=== PATIENT | female | born 1945 | race African-American/Black ===

== ENCOUNTER 2022-10-10 13:23 | Emergency (ER) | payer OTHER ==
[2022-10-10 14:38] LABS: SARS-COV-2 RT PCR NEGATIVE (NEGATIVE)
[2022-10-10 15:35] LABS: Absolute Lymphocytes (CBC) 1.4 K/uL (0.7-4.9); Hematocrit 38.7 % (36.0-45.0); Lymphocytes % 47.9 % (15.3-44.8); MCV 95.7 fL (80-100); MPV 8.3 fL (7.6-11.3); RBC Red Blood Cell Count 4.04 M/uL (3.86-4.86)
[2022-10-10 15:38] LABS: Protime INR 1.11
--- NOTE | 2022-10-10 15:43 | RAD REPORT ---
EXAM DESCRIPTION: RAD - Chest Single View - 10/10/2022 3:37 pm CLINICAL HISTORY: COUGH Chest pain. COMPARISON: No comparisons FINDINGS: Portable technique limits examination quality. Small calcified granuloma seen left upper lobe laterally. The lungs are otherwise mildly emphysematou s but clear. The heart is normal in size. No displaced fractures.Prominent scoliosis of the lower tho racic spine. IMPRESSION: No acute intrathoracic process suspected.
[2022-10-10 16:13] LABS: Albumin 3.2 g/dL (3.4-5.0); Bilirubin Direct 0.1 mg/dL (0-0.2); Bilirubin Total 0.4 mg/dL (0.2-1.0); Magnesium 2.4 mg/dL (1.8-2.4); Potassium 4.1 mmol/L (3.5-5.1); Protein, Total 7.2 g/dL (6.4-8.2); Troponin High Sensitivity 12.6 pg/mL (<58.9)
--- NOTE | 2022-10-10 16:59 | ER ---
Nurse's Notes [facility] Name: Xin Verma Age: 77 yrs Sex: Female : 1945 Arrival Date: 10/10/2022 Time: 13:24 Bed 8 Private MD: Diagnosis: Influenza due to identified novel influenza A virus;Acute upper respiratory infection, unspecified Presentation: 10/10 13:33 Chief complaint: Patient states: Lethargic, cold, cough, diarrhea sleeping more since ll1 Saturday. BP 72/47, O2 88% per family friend Fever 100.1 at home. Coronavirus screen: Vaccine status: Patient reports being unvaccinated. Client denies travel out of the [place] in the last 14 days. cough unrelated to allergies, diarrhea, fatigue, headache, Client presents with at least one sign or symptom that may indicate coronavirus-19. Standard/surgical mask placed on the client. Ebola Screen: Patient denies travel to an Ebola-affected area in the 21 days before illness onset. Initial Sepsis Screen: Does the patient meet any 2 criteria? No. Patient's initial sepsis screen is negative. Does the patient have a suspected source of infection? Yes: Productive cough/pneumonia. Risk Assessment: Do you want to hurt yourself or someone else? Patient reports no desire to harm self or others. Onset of symptoms was October 08, 2022. 13:33 Method Of Arrival: Ambulatory ll1 13:33 Acuity: APURVA 3 ll1 Triage Assessment: 13:37 General: Appears ill, Behavior is cooperative, appropriate for age. Pain: Denies pain. ll1 EENT: Reports nasal congestion. Neuro: No deficits noted. Cardiovascular: No deficits noted. Respiratory: Reports cough that is. Historical: - Allergies: 13:36 Prednisone; ll1 - PMHx: 13:36 None; ll1 - PSHx: 13:36 None; ll1 - Immunization history:: Client reports having NOT received the Covid vaccine. - Social history:: Smoking status: Patient denies any tobacco usage or history of. - Family history:: not pertinent. Screenin:50 Abuse screen: Denies threats or abuse. Denies injuries from another. Nutritional kc6 screening: No deficits noted. Tuberculosis screening: No symptoms or risk factors identified. Fall Risk No fall in past 12 months (0 pts). No secondary diagnosis (0 pts). IV access (20 points). Ambulatory Aid- None/Bed Rest/Nurse Assist (0 pts). Gait- Normal/Bed Rest/Wheelchair (0 pts) Mental Status- Oriented to own ability (0 pts). Total Acevedo Fall Scale indicates No Risk (0-24 pts). Assessment: 15:48 General: Appears in no apparent distress. comfortable, Behavior is calm, cooperative, kc6 appropriate for age. Pain: Denies pain. Neuro: Booker Agitation-Sedation Scale (RASS): 0 - Alert and Calm Level of Consciousness is awake, alert, obeys commands, Oriented to person, place, time, situation, Appropriate for age. Cardiovascular: Heart tones S1 S2 present Capillary refill < 3 seconds. Respiratory: Airway is patent Trachea midline Respiratory effort is even, unlabored, Respiratory pattern is regular, symmetrical. Respiratory: Breath sounds are clear bilaterally. GI: No signs and/or symptoms were reported involving the gastrointestinal system. : No signs and/or symptoms were reported regarding the genitourinary system. EENT: No signs and/or symptoms were reported regarding the EENT system. Derm: No signs and/or symptoms reported regarding the dermatologic system. Skin is intact, Skin is pink, warm \T\ dry. Musculoskeletal: No signs and/or symptoms reported regarding the musculoskeletal system. Circulation, motion, and sensation intact. Capillary refill < 3 seconds, Range of motion: intact in all extremities. 16:58 Reassessment: Patient appears in no apparent distress at this time. No changes from kc6 previously documented assessment. Patient and/or family updated on plan of care and expected duration. Pain level reassessed. Patient is alert, oriented x 3, equal unlabored respirations, skin warm/dry/pink. Patient denies pain at this time. 17:58 Reassessment: Patient appears in no apparent distress at this time. No changes from kc6 previously documented assessment. Patient and/or family updated on plan of care and expected duration. Pain level reassessed. Patient is alert, oriented x 3, equal unlabored respirations, skin warm/dry/pink. Patient denies pain at this time. 18:58 Reassessment: Patient appears in no apparent distress at this time. No changes from kc6 previously documented assessment. Patient and/or family updated on plan of care and expected duration. Pain level reassessed. Patient is alert, oriented x 3, equal unlabored respirations, skin warm/dry/pink. Patient denies pain at this time. Vital Signs: 13:33 BP 131 / 71; Pulse 75; Resp 18; Temp 97.6; Pulse Ox 100% ; Weight 64.41 kg; Height 5 ll1 ft. 3 in. (160.02 cm); Pain 0/10; 15:50 BP 104 / 71; Pulse 66; Resp 18 S; Pulse Ox 96% on R/A; Pain 0/10; kc6 16:50 BP 98 / 64; Pulse 76; Resp 18 S; Pulse Ox 100% on R/A; Pain 0/10; kc6 19:09 BP 109 / 44; Pulse 69; Resp 18 S; Pulse Ox 98% on R/A; Pain 0/10; kc6 13:33 Body Mass Index 25.15 (64.41 kg, 160.02 cm) ll1 ED Course: 13:24 Patient arrived in ED. am2 13:36 Triage completed. ll1 13:37 Arm band placed on. ll1 13:43 COVID-19/FLU A+B/RSV Sent. ll1 14:41 Marvin Covington MD is Attending Physician. [facility] 14:52 Phillip Bolanos RN is Primary Nurse. jd3 15:15 Missed attempt(s): 20 gauge in right wrist. Bleeding controlled, band aid applied, jd3 catheter tip intact. 15:19 Inserted saline lock: 20 gauge in right antecubital area, using aseptic technique. jd3 Blood collected. 15:39 XRAY Chest (1 view) In Process Unspecified. EDMS 19:26 No provider procedures requiring assistance completed. IV discontinued, intact, as6 bleeding controlled, No redness/swelling at site. Pressure dressing applied. 19:27 Bed in low position. Call light in reach. as6 Administered Medications: 17:29 Drug: Rocephin (cefTRIAXone) 1 grams Route: IV; Rate: per protocol; Site: right kc6 antecubital; 18:29 Follow up: Response: No adverse reaction; IV Status: Completed infusion; IV Intake: 25ufju7 17:29 Drug: Tamiflu (oseltamivir) 75 mg Route: PO; [facility] 18:29 Follow up: Response: No adverse reaction [facility] 17:29 Drug: Zithromax (azithromycin) 500 mg Route: IVPB; Infused Over: 1 hrs; Site: right kc6 antecubital; 18:29 Follow up: Response: No adverse reaction; IV Status: Infusion continued kc6 Medication: 19:27 VIS not applicable for this client. as6 Intake: 18:29 IV: 10ml; Total: 10ml. kc6 Outcome: 16:58 Discharge ordered by MD. odom 19:27 Discharged to home ambulatory, with family. as6 19:27 Condition: stable 19:27 Discharge instructions given to patient, Instructed on discharge instructions, follow up and referral plans. medication usage, Demonstrated understanding of instructions, follow-up care, medications, Prescriptions given X 2. 19:28 Patient left the ED. as6 Signatures: Dispatcher [employer] EDMS Marvin Covington MD MD cha Moreno, Amanda am2 Davies, Jonathon, RN RN jd3 Rolando Ritchie RN RN ll1 William Butcher RN RN as6 Yomaira Deras RN RN kc6
--- NOTE | 2022-10-10 16:59 | EDPHYS ---
Physician Documentation [facility] Name: Xin Verma Age: 77 yrs Sex: Female : 1945 Arrival Date: 10/10/2022 Time: 13:24 Bed 8 Private MD: MELINDA Physician Marvin Covington HPI: 10/10 16:51 This 77 yrs old Black Female presents to ER via Ambulatory with complaints of Blood lei Pressure Problem - low, low O2. 16:51 The patient or guardian reports cough, that is intermittent, difficulty breathing, flu lei symptoms, arthralgias, low-grade fever, myalgias. Onset: The symptoms/episode began/occurred 2 day(s) ago. Modifying factors: The symptoms are alleviated by nothing. the symptoms are aggravated by activity. The patient or guardian reports hoarse voice. Severity of symptoms: At their worst the symptoms were mild, in the emergency department the symptoms are unchanged. Associated signs and symptoms: The patient has no apparent associated signs or symptoms. Modifying factors: The symptoms are alleviated by nothing, the symptoms are aggravated by nothing. Severity of symptoms: At their worst the symptoms were mild in the emergency department the symptoms are unchanged. Historical: - Allergies: 13:36 Prednisone; ll1 - PMHx: 13:36 None; ll1 - PSHx: 13:36 None; ll1 - Immunization history:: Client reports having NOT received the Covid vaccine. - Social history:: Smoking status: Patient denies any tobacco usage or history of. - Family history:: not pertinent. ROS: 16:51 Constitutional: Negative for fever, chills, and weight loss, Eyes: Negative for injury, lei pain, redness, and discharge, ENT: Negative for injury, pain, and discharge, Neck: Negative for injury, pain, and swelling, Cardiovascular: Negative for chest pain, palpitations, and edema, Abdomen/GI: Negative for abdominal pain, nausea, vomiting, diarrhea, and constipation, Back: Negative for injury and pain, : Negative for injury, bleeding, discharge, and swelling, MS/Extremity: Negative for injury and deformity, Skin: Negative for injury, rash, and discoloration, Neuro: Negative for headache, weakness, numbness, tingling, and seizure. 16:51 Respiratory: Positive for cough, with no reported sputum. Exam: 16:51 Constitutional: This is a well developed, well nourished patient who is awake, alert, lei and in no acute distress. Head/Face: Normocephalic, atraumatic. Eyes: Pupils equal round and reactive to light, extra-ocular motions intact. Lids and lashes normal. Conjunctiva and sclera are non-icteric and not injected. Cornea within normal limits. Periorbital areas with no swelling, redness, or edema. ENT: Nares patent. No nasal discharge, no septal abnormalities noted. Tympanic membranes are normal and external auditory canals are clear. Oropharynx with no redness, swelling, or masses, exudates, or evidence of obstruction, uvula midline. Mucous membranes moist. Neck: Trachea midline, no thyromegaly or masses palpated, and no cervical lymphadenopathy. Supple, full range of motion without nuchal rigidity, or vertebral point tenderness. No Meningismus. Chest/axilla: Normal chest wall appearance and motion. Nontender with no deformity. No lesions are appreciated. Cardiovascular: Regular rate and rhythm with a normal S1 and S2. No gallops, murmurs, or rubs. Normal PMI, no JVD. No pulse deficits. Respiratory: Lungs have equal breath sounds bilaterally, clear to auscultation and percussion. No rales, rhonchi or wheezes noted. No increased work of breathing, no retractions or nasal flaring. Abdomen/GI: Soft, non-tender, with normal bowel sounds. No distension or tympany. No guarding or rebound. No evidence of tenderness throughout. Back: No spinal tenderness. No costovertebral tenderness. Full range of motion. Female : Normal external genitalia. Skin: Warm, dry with normal turgor. Normal color with no rashes, no lesions, and no evidence of cellulitis. MS/ Extremity: Pulses equal, no cyanosis. Neurovascular intact. Full, normal range of motion. Neuro: Awake and alert, GCS 15, oriented to person, place, time, and situation. Cranial nerves II-XII grossly intact. Motor strength 5/5 in all extremities. Sensory grossly intact. Cerebellar exam normal. Normal gait. Psych: Awake, alert, with orientation to person, place and time. Behavior, mood, and affect are within normal limits. 16:51 ECG was reviewed by the Attending Physician. 18:16 Back: pain, is absent, ROM is normal, normal spinal alignment noted, CVA tenderness, is lei absent. 18:16 Musculoskeletal/extremity: DVT Exam: No signs of deep vein thrombosis. no pain, no swelling, no tenderness, negative Homans' sign noted on exam, no appreciated bluish discoloration, no erythema, no increased warmth. Vital Signs: 13:33 BP 131 / 71; Pulse 75; Resp 18; Temp 97.6; Pulse Ox 100% ; Weight 64.41 kg; Height 5 ll1 ft. 3 in. (160.02 cm); Pain 0/10; 15:50 BP 104 / 71; Pulse 66; Resp 18 S; Pulse Ox 96% on R/A; Pain 0/10; kc6 16:50 BP 98 / 64; Pulse 76; Resp 18 S; Pulse Ox 100% on R/A; Pain 0/10; kc6 19:09 BP 109 / 44; Pulse 69; Resp 18 S; Pulse Ox 98% on R/A; Pain 0/10; kc6 13:33 Body Mass Index 25.15 (64.41 kg, 160.02 cm) ll1 MDM: 14:41 Patient medically screened. lei 16:54 Differential diagnosis: bronchitis, flu, URI. Antibiotic administration: The patient is lei discharged and will get outpatient antibiotics, Zithromax. Differential Diagnosis: Bronchitis Influenza Upper Respiratory Infection Sinusitis Pharyngitis Viral Syndrome Pneumonia. Data reviewed: vital signs, nurses notes, lab test result(s), EKG, radiologic studies, plain films. Data interpreted: compliance monitor: rate is 66 beats/min, rhythm is regular, Pulse oximetry: on room air is 96 %. Test interpretation: by ED physician or midlevel provider: ECG, plain radiologic studies. Counseling: I had a detailed discussion with the patient and/or guardian regarding: the historical points, exam findings, and any diagnostic results supporting the discharge/admit diagnosis, lab results, radiology results, the need for outpatient follow up, for definitive care, a family practitioner, an 3rd grade teacher. 10/10 13:37 Order name: COVID-19/FLU A+B/RSV; Complete Time: 16:38 ll1 10/10 14:46 Order name: Basic Metabolic Panel; Complete Time: 16:38 lei 10/10 14:46 Order name: CBC with Diff; Complete Time: 16:38 lei 10/10 14:46 Order name: LFT's; Complete Time: 16:38 [facility] 10/10 14:46 Order name: Magnesium; Complete Time: 16:38 [facility] 10/10 14:46 Order name: NT PRO-BNP; Complete Time: 16:38 [facility] 10/10 14:46 Order name: PT-INR; Complete Time: 16:38 [facility] 10/10 14:46 Order name: Troponin HS; Complete Time: 16:38 [facility] 10/10 14:46 Order name: XRAY Chest (1 view); Complete Time: 16:38 [facility] 10/10 14:46 Order name: Blood Culture Adult (2) [facility] 10/10 14:46 Order name: Lipase; Complete Time: 16:38 [facility] 10/10 14:46 Order name: EKG; Complete Time: 14:47 [facility] 10/10 14:46 Order name: Cardiac monitoring; Complete Time: 15:18 [facility] 10/10 14:46 Order name: EKG - Nurse/Tech; Complete Time: 15:48 [facility] 10/10 14:46 Order name: IV Saline Lock; Complete Time: 15:18 [facility] 10/10 14:46 Order name: Labs collected and sent; Complete Time: 15:18 [facility] 10/10 14:46 Order name: O2 Per Protocol; Complete Time: 15:18 [facility] 10/10 14:46 Order name: O2 Sat Monitoring; Complete Time: 15:18 [facility] 10/10 15:35 Order name: Labs - recollect needed: recollect green top; Complete Time: 15:48 10/10 16:51 Order name: PO challenge; Complete Time: 17:29 [facility] EC:51 Rate is 65 beats/min. Rhythm is regular. QRS [place] is Normal. MA interval is normal. QRS lei interval is normal. QT interval is normal. No Q waves. T waves are Normal. No ST changes noted. Clinical impression: Normal ECG and No evidence of ischemia. Interpreted by me. Reviewed by me. Administered Medications: 17:29 Drug: Rocephin (cefTRIAXone) 1 grams Route: IV; Rate: per protocol; Site: right [facility] antecubital; 18:29 Follow up: Response: No adverse reaction; IV Status: Completed infusion; IV Intake: 48hgju2 17:29 Drug: Tamiflu (oseltamivir) 75 mg Route: PO; kc6 18:29 Follow up: Response: No adverse reaction kc6 17:29 Drug: Zithromax (azithromycin) 500 mg Route: IVPB; Infused Over: 1 hrs; Site: right kc6 antecubital; 18:29 Follow up: Response: No adverse reaction; IV Status: Infusion continued kc6 Disposition Summary: 10/10/22 16:58 Discharge Ordered Location: Home [facility] Problem: new [facility] Symptoms: have improved [facility] Condition: Stable [facility] Diagnosis - Influenza due to identified novel influenza A virus [facility] - Acute upper respiratory infection, unspecified [facility] Followup: [facility] - With: Private Physician - When: 2 - 3 days - Reason: Re-evaluation by your physician Discharge Instructions: - Discharge Summary Sheet [facility] - Fever, Adult lei - Upper Respiratory Infection, Adult [facility] - Cool Mist Vaporizer [facility] - Upper Respiratory Infection, Adult, Jyvy-yh-Dfoy lei - Influenza, Adult, Dylv-sz-Ajiy lei - Viral Respiratory Infection, Bcuh-Kj-Aqic [facility] - Cough, Adult [facility] Forms: - Medication Reconciliation Form [facility] - Thank You Letter [facility] - Antibiotic Education [facility] - Prescription Opioid Use [facility] Prescriptions: - Zithromax Z-Esa 250 mg Oral Tablet - take 1 tablet by ORAL route as directed for 5 days Day 1 - take two (2) tablets [facility] one time. Day 2, 3, 4 , 5 take one (1) tablet once daily.; 6 tablet; Refills: 0, Product Selection Permitted - Tamiflu 75 mg Oral Capsule - take 1 tablet by ORAL route every 12 hours for 5 days; 10 tablet; Refills: 0, [facility] Product Selection Permitted Signatures: Dispatcher [employer] Alissa Diaz Corey, MD MD cha Lewis, Lynsay, RN RN ll1 Yomaira Deras RN RN kc6
[2022-10-10] MEDS ORDERED: OSELTAMIVIR 75 MG CAP ONE (17:06)
[2022-10-10] MEDS ORDERED: CEFTRIAXONE 1000 MG/VIAL ONE (17:07)
[2022-10-10] MEDS ORDERED: AZITHROMYCIN 500 MG INJ IVPB ONE (17:07)
[2022-10-10] MEDS ORDERED: NA CHLORIDE 0.9% 250 ML ONE (17:07)
[2022-10-10 19:46] VITALS: TEMP 97.6
[2022-10-10 19:58] VITALS: BP 109/44; O2SAT 98
--- NOTE | 2022-10-13 19:21 | EKG ---
Test Date: 2022-10-10 Test Time: 15:32:13 [employer]: TOI MEASUREMENT RESULTS: Intervals: Rate: 65 MO: 142 QRSD: 64 QT: 394 QTc: 409 [place]: P: 64 MO: 142 QRS: 54 T: 76 INTERPRETIVE STATEMENTS: Normal sinus rhythm Normal ECG Compared to ECG 07/16/1999 00:07:00 No significant changes Electronically Signed On 10-13-22 19:11:21 OUTSEWER by Leon Mcneill
== END 2022-10-10 19:28 | disposition home or self-care (01) ==
LOC: ER 13:23
DX: J10.1 Influenza due to other identified influenza virus with other respiratory manifestations (principal); Z20.822 Contact with and (suspected) exposure to COVID-19; Z88.8 Allergy status to other drugs, medicaments and biological substances
CPT/HCPCS: 96365; 96368; 93005; 87040 ×2; 85025; 80048; 36415; 83735; 85610; 80076; 84484; 83690; 83880; 0241U; 71045; 99284; J0456; J7050